=== PATIENT | male | born 1950 | race African-American/Black ===

== ENCOUNTER 2023-12-21 11:23 | Emergency (ER) | payer OTHER ==
[~2023-12-21] VITALS: Ht 182.9 cm; Wt 91.0 kg
[2023-12-21 11:28] VITALS: O2SAT 98
[2023-12-21 12:04] LABS: DIFFERENTIAL COMMENT 0; EOSINOPHILS % 0.5 % (0.0-5.0); HEMATOCRIT. 30.4 % (42.0-52.0); HEMOGLOBIN. 10.2 g/dL (14.0-18.0); LYMPHOCYTES % 11.7 % (20.0-50.0); MEAN CORPUSCULAR HEMOGLOBIN 36.4 pg (28.0-32.0); MEAN CORPUSCULAR HGB CONC 33.6 g/dL (31.0-37.0); MEAN CORPUSCULAR VOLUME 108.5 fL (80.0-94.0); MEAN PLATELET VOLUME 9.8 fl (7.4-10.4); MONOCYTES % 6.6 % (2.0-8.0); NEUTROPHILS % 80.2 % (40.0-76.0); PLATELET 153 x1000/uL (130-400); RED CELL DISTRIBUTION WIDTH 14.2 % (11.6-14.6); WHITE BLOOD COUNT 4.8 x1000/uL (4.5-11.0)
[2023-12-21 12:14] LABS: CARBON DIOXIDE 29 mEq/L (21-32); CHLORIDE 95 mEq/L (98-107); POTASSIUM 4.2 mEq/L (3.5-5.1); SODIUM 134 mEq/L (136-145)
[2023-12-21 12:15] LABS: CALCIUM 8.9 mg/dL (8.7-10.4)
[2023-12-21 12:20] LABS: GLUCOSE 225 mg/dL (70-105); PROTHROMBIN TIME 11.2 sec (9.6-11.0); TROPONIN I HIGH SENSITIVITY 18 ng/L (3.0-53); UREA NITROGEN BLOOD 47 mg/dL (9-23)
[2023-12-21 12:25] LABS: CREATININE 6.6 mg/dL (0.6-1.3); ETHANOL BLOOD < 10 mg/dL (<10)
[2023-12-21] MEDS: CLOPIDOGREL 75MG TABLET PO ONE (12:49)
[2023-12-21] MEDS ORDERED: DOCUSATE SODIUM 100MG CAPSULE PO PRN (13:45)
[2023-12-21] MEDS ORDERED: CLONIDINE 0.1MG TABLET PO PRN (13:45)
[2023-12-21] MEDS ORDERED: ACETAMINOPHEN 325MG TABLET PO PRN ×2 (13:45)
[2023-12-21] MEDS: IOHEXOL-350 100 ML BOTTLE ONE (13:45)
[2023-12-21] MEDS: ATORVASTATIN CALCIUM 40MG TABLET PO STA (13:45)
[2023-12-21] MEDS ORDERED: MAGNESIUM/ALUMINUM HYDROXIDE/SIMETHICONE 30ML UDC PO PRN (13:45)
[2023-12-21] MEDS ORDERED: ONDANSETRON HCL 4MG/2ML INJ IV PRN (13:45)
[2023-12-21] MEDS ORDERED: IPRATROPIUM/ALBUTEROL 0.5-3(2.5)MG/3ML NEB HHN PRN (13:45)
[2023-12-21] MEDS ORDERED: PRED5TAB PO (13:57)
[2023-12-21] MEDS ORDERED: ATOR40TA70 PO (13:57)
[2023-12-21] MEDS ORDERED: ABIR250T2 PO (13:57)
[2023-12-21] MEDS ORDERED: CALC667C PO (13:57)
[2023-12-21 14:05] VITALS: BP 115/55; PULSE 70; RESP 14; TEMP 98.1
[2023-12-21 14:26] LABS: VITAMIN B12 SERUM 1815 pg/mL (211-911)
[2023-12-21 14:40] LABS: FOLIC ACID (FOLATE) SERUM > 20.00 ng/mL (>5.38)
[2023-12-21 14:58] LABS: T4 FREE 1.04 ng/dL (0.89-1.76); THYROID STIMULATING HORMONE 1.66 uIU/mL (0.55-4.78)
[2023-12-21] MEDS ORDERED: ENOXAPARIN 30MG/0.3ML SYR SUBCUT SCH (15:00)
[2023-12-21] MEDS ORDERED: CALCIUM ACETATE 667MG CAPSULE PO SCH (17:00)
[2023-12-21] MEDS ORDERED: ATORVASTATIN CALCIUM 40MG TABLET PO SCH (21:00)
[2023-12-22] MEDS ORDERED: PANTOPRAZOLE SODIUM 40 MG/VIAL IV SCH (09:00)
[2023-12-22] MEDS ORDERED: CLOPIDOGREL 75MG TABLET PO SCH (09:00)
[2023-12-22] MEDS ORDERED: PREDNISONE 5MG TABLET PO SCH (09:00)
== END 2023-12-21 15:47 | disposition short-term general hospital (02) ==
LOC: ER 12:22 → EDBEDREQTM 12:45 → EDBEDREQ 12:45 → ER 15:47
DX: I63.9 Cerebral infarction, unspecified (principal); E11.9 Type 2 diabetes mellitus without complications; N18.6 End stage renal disease; I12.0 Hypertensive chronic kidney disease with stage 5 chronic kidney disease or end stage renal disease; Z98.890 Other specified postprocedural states; Z99.2 Dependence on renal dialysis
CPT/HCPCS: 80061; 80048; 80320; 82607; 82746; 83036; 83880; 84439; 84443; 85025; 85379; 85610; 84484; 36415; 71045; 70496; 70498; 70450; 93005; 99285; Q9967; G0480

== ENCOUNTER 2025-06-19 11:45 | Emergency (ER) | payer OTHER ==
[~2025-06-19] VITALS: Ht 167.6 cm; Wt 66.0 kg
[~2025-06-19 11:45] MED LIST: ATOR40TA70 PO; CALC667C PO; PRED5TAB PO; [UNRECOGNIZED DRUG - CODE] PO
[2025-06-19 11:48] VITALS: O2SAT 100
[2025-06-19 12:37] LABS: BASOPHILS % 0.3 % (0.0-2.0); EOSINOPHILS % 0.5 % (0.0-5.0); HEMATOCRIT. 37.2 % (42.0-52.0); HEMOGLOBIN. 11.3 g/dL (14.0-18.0); LYMPHOCYTES % 9.4 % (20.0-50.0); MEAN PLATELET VOLUME 9.5 fl (7.4-10.4); MONOCYTES % 7.5 % (2.0-8.0); NEUTROPHILS % 82.3 % (40.0-76.0); PLATELET 268 x1000/uL (130-400); RED BLOOD CELL COUNT 3.70 mill/uL (4.7-6.1); RED CELL DISTRIBUTION WIDTH 19.7 % (11.6-14.6)
[2025-06-19 12:50] LABS: ETHANOL BLOOD < 10 mg/dL (<10); UREA NITROGEN BLOOD 43 mg/dL (9-23)
[2025-06-19 12:52] LABS: ASPARTATE AMINOTRANSFERASE 19 IU/L (<34); BILIRUBIN DIRECT 0.1 mg/dL (<=3.0); BILIRUBIN TOTAL 0.4 mg/dL (0.1-1.0); PROTEIN TOTAL 8.5 g/dL (6.0-8.3)
[2025-06-19 12:57] LABS: CREATININE 5.3 mg/dL (0.6-1.3)
[2025-06-19] MEDS: INSULIN REGULAR (HUMULIN R) 1000UNITS/10ML VIAL IV ONE (13:54)
[2025-06-19 15:16] LABS: BG BASE EXCESS -2.4 mmol/L (-2.0-3.0); BG CARBOXYHEMOGLOBIN 2.2 % (0.5-1.5); BG DEOXYHEMOGLOBIN 6.9 % (0.0-5.0); BG FRACTION INSPIRED OXYGEN 21; BG HCO3 ACT 22.1 mmol/L (21.0-28.0); BG METHEMOGLOBIN 0.3 % (0.5-1.5); BG OXYGEN SATURATION 92.9 % (94.0-98.0); BG OXYHEMOGLOBIN 90.6 % (94.0-98.0); BG PCO2 37.0 mmHg (35.0-48.0); BG PH 7.394 (7.350-7.450); BG PO2 68.0 mmHg (83.0-108.0); BG SAMPLE SITE RIGHT RADIAL; BG TOTAL HEMOGLOBIN 10.9 g/dL (13.5-17.5); BG VENT MODE ROOM AIR
[2025-06-19] MEDS: INSULIN REGULAR (HUMULIN R) 1000UNITS/10ML VIAL SUBCUT ONE (17:00)
[2025-06-19 18:29] VITALS: BP 116/50; PULSE 84; RESP 16; TEMP 36.8; O2SAT 98
== END 2025-06-19 18:51 | disposition short-term general hospital (02) ==
LOC: ER 11:45 → CANBEDREQ 16:07 → ER 18:51
DX: G93.40 Encephalopathy, unspecified (principal); E11.65 Type 2 diabetes mellitus with hyperglycemia; E11.22 Type 2 diabetes mellitus with diabetic chronic kidney disease; N18.6 End stage renal disease; R41.0 Disorientation, unspecified; Z79.4 Long term (current) use of insulin; Z79.52 Long term (current) use of systemic steroids; Z79.899 Other long term (current) drug therapy
CPT/HCPCS: 80076; 80048; 82010; 80320; 82140; 82550; 82962; 85025; 36415; 71045; 70450; 82805; 82375; 93005; 96372; 96374; 99285; 36600; J1815; A4606; G0480